=== PATIENT | male | born 1945 | race Caucasian/White ===

== ENCOUNTER → 2016-11-18 | Outpatient (CLI) | payer BC ==
[~2016-11-18] MED LIST: ALLO300T2 PO; APR50 PO; ASPI-232 PO; ATEN100T PO; DSY/50 PO; ERGO500037 PO; FINA5TAB4 PO; FLV1 PO; FURO40TA3 PO; INSU0.01 SQ; INSU1INJ17 SC; ISOS30TA3 PO; LSN20 PO; MCRK20 PO; METO100T14 PO; MIRA1TAB3 PO; NTRGSL/4 UT; PLV75 PO; PRAV20TA PO; TRIA0.1C20 TOP; TRMCR515 TOP
[2016-11-18 12:17] LABS: HEMATOCRIT 44.3 % (42-52); MEAN CELL VOLUME 87.7 fL (80-100); MEAN CORPUSCULAR HEMOGLOBIN 28.3 pg (25-34); MEAN CORPUSCULAR HGB CONC 32.3 g/dl (32-36); MEAN PLATELET VOLUME 10.3 fL (7.4-10.4); PLATELET COUNT 200 K/uL (130-400); RED BLOOD COUNT 5.05 M/uL (4.7-6.1); WHITE BLOOD COUNT 5.86 K/uL (4.8-10.8)
[2016-11-18 12:25] LABS: URINE APPEARANCE CLEAR (CLEAR); URINE BILIRUBIN NEG (NEG); URINE COLOR YELLOW; URINE EPITHELIAL CELL AUTO 0-5 /lpf (0-5); URINE NITRITE NEG (NEG); UROBILINOGEN NEG (NEG)
[2016-11-18 12:30] LABS: MANUAL MICROSCOPIC REQUIRED? NO; REVIEW REQ? NO
[2016-11-18 12:33] LABS: ESTIMATED AVERAGE GLUCOSE 177 mg/dl; HA1C FLAG Normal (Normal)
[2016-11-18 12:36] LABS: ALT/SGPT 16 U/L (12-78); BLOOD UREA NITROGEN 37 mg/dl (7-18); BUN/CREATININE RATIO 28.1 (10-20); CALCIUM 9.4 mg/dl (8.5-10.1); CARBON DIOXIDE 28 mmol/L (21-32); CHLORIDE 103 mmol/L (98-107); CHOLESTEROL 182 mg/dl (0-200); GLUCOSE 142 mg/dl (70-99); POTASSIUM 4.4 mmol/L (3.5-5.1); SODIUM 139 mmol/L (136-145); TRIGLYCERIDES 267 mg/dl (0-150); VERY LOW DENSITY LIPOPROT CALC 53 mg/dl
[2016-11-18 12:39] LABS: ALB/GLOB RATIO 0.9 (0.9-2); ALKALINE PHOSPHATASE 74 U/L (45-117); AST/SGOT 11 U/L (15-37); CHOLESTEROL/HDL RATIO 5.5; HDL CHOLESTEROL 33 mg/dl; LDL CHOLESTEROL CALCULATED 96 mg/dl
[2016-11-18 12:53] LABS: URINE PROTIEN/CREAT RATIO 0.2 (0-0.2)
--- NOTE | 2016-11-23 14:01 | CODING QUERY MEDICAL NECESSITY ---
SUPPORTING DIAGNOSIS NEEDED A supporting diagnosis is required for the test/procedure performed on this patient in order for us to be reimbursed by the patient's insurance. Please provide a supporting diagnosis for the following test/procedure listed below next to the test name along with your signature. *If there is no additional diagnosis for this patient that would support the following test/procedure please document that below next to the test/procedure. Test(s)/Procedure(s) that require a supporting diagnosis: * VITAMIN B-12 LEVEL DIAGNOSIS: * DOS: 11/18/16 Provider Signature: Date: Thank you Migdalia Mae Health Information Management Once completed, please kindly fax back to [phone] For questions please call [phone]
== END | disposition home or self-care (01) ==
LOC: C.LABBFT 09:24
PROVIDERS: ATTEND Internal Medicine
DX: R80.9 Proteinuria, unspecified (principal); N25.81 Secondary hyperparathyroidism of renal origin; D64.9 Anemia, unspecified; E55.9 Vitamin D deficiency, unspecified; N18.2 Chronic kidney disease, stage 2 (mild); I25.10 Atherosclerotic heart disease of native coronary artery without angina pectoris; M21.969 Unspecified acquired deformity of unspecified lower leg; M79.1 Myalgia; M54.9 Dorsalgia, unspecified; M19.90 Unspecified osteoarthritis, unspecified site; Q24.9 Congenital malformation of heart, unspecified; E11.49 Type 2 diabetes mellitus with other diabetic neurological complication; E11.65 Type 2 diabetes mellitus with hyperglycemia; E11.29 Type 2 diabetes mellitus with other diabetic kidney complication; I12.9 Hypertensive chronic kidney disease with stage 1 through stage 4 chronic kidney disease, or unspecified chronic kidney disease; E66.9 Obesity, unspecified; G47.9 Sleep disorder, unspecified

== ENCOUNTER → 2017-02-07 | Outpatient (CLI) | payer BC ==
--- NOTE | 2017-02-07 15:02 | DIAGNOSTIC IMAGING REPORT ---
RIGHT ANKLE 3 VIEWS CLINICAL HISTORY: Right ankle pain. FINDINGS: 3 views of the right ankle are obtained. No prior studies are available for comparison at the time of dictation. The skeletal structures are osteopenic. No fracture is seen. The ankle mortise is intact. There are large dorsal and plantar calcaneal enthesophytes. No joint effusion is identified. Soft tissue edema is present throughout the right calf. There is atherosclerotic calcification of the regional arteries. IMPRESSION: 1. Diffuse soft tissue edema with no acute bony abnormality identified. 2. Osteopenia and large heel spurs as above. Electronically signed by: Montez Carvalho M.D. 02/07/2017 3:01 PM Dictated Date/Time: 02/07/2017 3:00 PM
== END | disposition home or self-care (01) ==
LOC: C.RAD1850 14:36
PROVIDERS: ATTEND Internal Medicine
DX: M25.571 Pain in right ankle and joints of right foot (principal)

== ENCOUNTER → 2017-02-11 | Outpatient (CLI) | payer BC ==
--- NOTE | 2017-02-11 15:50 | DIAGNOSTIC IMAGING REPORT ---
MRI OF THE BRAIN WITHOUT IV CONTRAST CLINICAL HISTORY: Gated disturbance. Optic nerve asymmetry. Daily headaches. COMPARISON STUDY: No priors. TECHNIQUE: MRI of the brain was performed utilizing various T1 and T2-weighted sequences in the axial, sagittal, and coronal planes. IV contrast was not administered for this examination. FINDINGS: Brain parenchyma: There are age-related involutional changes noting moderate patchy subcortical and periventricular microangiopathic disease. There is no hemorrhage or mass effect. There are small chronic lacunar infarcts identified in the right cerebellar hemisphere, both thalami, the left caudate head, and the left basal ganglia. There is no restricted diffusion to suggest acute ischemia. Otoole-white matter differentiation is preserved. No extra-axial fluid collection is seen. The cerebellar tonsils are normal in configuration. Ventricles, sulci, and cisterns: Prominent secondary to involutional change. Pituitary and sella: Partially empty sella is incidentally noted. Intracranial vasculature: Normal flow voids are maintained at the skull base. Orbits: The bony orbits are grossly intact. Orbital contents are normal in appearance. The optic nerves are normal as visualized. Sinuses and mastoids: Clear. Calvarium: Unremarkable. Cervical cord: Partially visualized cervical spinal cord is normal in morphology and signal intensity. IMPRESSION: Age-related changes as above with no acute intracranial abnormality. Electronically signed by: Montez Carvalho M.D. 02/11/2017 3:49 PM Dictated Date/Time: 02/11/2017 3:45 PM
== END | disposition home or self-care (01) ==
LOC: C.MRI 15:06
PROVIDERS: ATTEND Internal Medicine
DX: H47.091 Other disorders of optic nerve, not elsewhere classified, right eye (principal); R26.9 Unspecified abnormalities of gait and mobility; R51 Headache

== ENCOUNTER → 2017-05-12 | Outpatient (CLI) | payer BC ==
--- NOTE | 2017-05-12 13:17 | DIAGNOSTIC IMAGING REPORT ---
CHEST 2 VIEWS ROUTINE CLINICAL HISTORY: I25.10 Arteriosclerotic coronary artery [id number] unstable angina COMPARISON STUDY: 02/03/2015 FINDINGS: The heart is mildly enlarged. There is no failure. There is no focal pulmonary consolidation. There are no pleural effusions. There is slight interstitial prominence, a finding similar to the prior study, and possibly secondary to the patient's body habitus.. There is an old left clavicular fracture.[ IMPRESSION: Mild chronic interstitial prominence. No acute findings. Electronically signed by: Yg Aragon M.D. 05/12/2017 1:15 PM Dictated Date/Time: 05/12/2017 1:15 PM
[2017-05-12 13:23] LABS: URINE APPEARANCE CLEAR (CLEAR); URINE BILIRUBIN NEG (NEG); URINE COLOR YELLOW; URINE EPITHELIAL CELL AUTO 0-5 /lpf (0-5); URINE NITRITE NEG (NEG); URINE PH 6.5 (4.5-7.5); URINE SPECIFIC GRAVITY 1.013 (1.000-1.030); UROBILINOGEN NEG (NEG)
[2017-05-12 13:24] LABS: HEMATOCRIT 44.4 % (42-52); MEAN CELL VOLUME 85.4 fL (80-100); MEAN CORPUSCULAR HEMOGLOBIN 28.3 pg (25-34); MEAN CORPUSCULAR HGB CONC 33.1 g/dl (32-36); MEAN PLATELET VOLUME 10.5 fL (7.4-10.4); PLATELET COUNT 215 K/uL (130-400); WHITE BLOOD COUNT 6.57 K/uL (4.8-10.8)
[2017-05-12 13:30] LABS: MANUAL MICROSCOPIC REQUIRED? NO; REVIEW REQ? NO
[2017-05-12 13:34] LABS: PARTIAL THROMBOPLASTIN RATIO 1.2; PROTHROMBIN TIME (PATIENT) 10.5 SECONDS (9.0-12.0)
[2017-05-12 13:36] LABS: ESTIMATED AVERAGE GLUCOSE 163 mg/dl; HA1C FLAG Normal (Normal)
[2017-05-12 13:42] LABS: URINE PROTIEN/CREAT RATIO 0.2 (0-0.2); URINE TOTAL PROTEIN 5.7 mg/dl (0-11.9)
[2017-05-12 13:50] LABS: ALT/SGPT 19 U/L (12-78); BLOOD UREA NITROGEN 19 mg/dl (7-18); CALCIUM 9.5 mg/dl (8.5-10.1); CARBON DIOXIDE 29 mmol/L (21-32); CHLORIDE 101 mmol/L (98-107); GLUCOSE 138 mg/dl (70-99); POTASSIUM 3.7 mmol/L (3.5-5.1); SODIUM 137 mmol/L (136-145)
[2017-05-12 13:53] LABS: ALB/GLOB RATIO 0.9 (0.9-2); ALKALINE PHOSPHATASE 88 U/L (45-117); AST/SGOT 23 U/L (15-37); PHOSPHORUS 2.6 mg/dl (2.5-4.9)
== END | disposition home or self-care (01) ==
LOC: C.RAD1850 12:11
PROVIDERS: ATTEND Internal Medicine Cardiovascular Disease
DX: I25.10 Atherosclerotic heart disease of native coronary artery without angina pectoris (principal); I20.0 Unstable angina; R80.9 Proteinuria, unspecified; N25.81 Secondary hyperparathyroidism of renal origin; D64.9 Anemia, unspecified; E55.9 Vitamin D deficiency, unspecified; I12.9 Hypertensive chronic kidney disease with stage 1 through stage 4 chronic kidney disease, or unspecified chronic kidney disease; E11.29 Type 2 diabetes mellitus with other diabetic kidney complication; N18.3 Chronic kidney disease, stage 3 (moderate)

== ENCOUNTER → 2017-05-13 | Day surgery (SDC) | payer BC ==
[~2017-05-13] VITALS: Ht 167.6 cm; Wt 110.0 kg
[~2017-05-13] MED LIST changes: +ACETAMINOPHEN 325 MG TAB PO PRN; +ATROPINE SULFATE 0.1 MG/ML 5ML SYR IV PRN; +FENTANYL CITRATE INJ 50 MCG/1 ML 2 ML VIAL ONE; +HEPARIN SOD (PORCINE) 1000 UNIT/ML 10 ML VIAL ONE; +MIDAZOLAM HCL 1 MG/ML 2ML VIAL ONE; +NITROGLYCERIN/D5W 100MCG/ML 20ML SYR ONE; +NiCARDipine HCL INJ 2.5 MG/ML 10 ML AMP ONE; +SODIUM CHLORIDE 0.9% 1000ML 1,000 ML IV SCH; +SODIUM CHLORIDE 0.9% 1000ML 250 ML IV PRN
[2017-05-13 07:09] VITALS: BP 148/67; PULSE 71; TEMP 36.6; O2SAT 97; Ht 167.6 cm; Wt 110.0 kg
--- NOTE | 2017-05-13 10:54 | History & Physical Bridge Note ---
H&P Re-Evaluation Bridge Note: I have examined the patient, reviewed the History & Physical and in the interval since the performance of the History & Physical I have noted the following changes of clinical significance: No changes noted
--- NOTE | 2017-05-13 10:55 | Procedure Note ---
Pre-Mod Sedation Assessment General Date of Moderate Sedation: May 13, 2017. Vital Signs: Vital Signs Past 12 Hours Date Time Temp Pulse Resp B/P (MAP) Pulse Ox O2 Delivery O2 Flow Rate FiO2 05/13/17 07:09 36.6 71 16 148/67 97 Room Air Review Cardiovascular: regular rate, rhythm, no gallop, no JVD, no murmur, normal peripheral pulses, + pertinent finding (Trace pretibial edema) Abdomen: normal bowel sounds, non tender, soft Lungs: lungs clear Pre-Sedation Airway Assessment Oral Cavity: Dentures Able to Visualize Vocal Cords: No Short Thick Neck: Yes Hx of Sleep Apnea: Yes Smoking Status: Former Smoker Mallampati Classification: Class III ASA Classification: Class III Procedure Planning Contraindications-for Mod Sed: None Yes Notes The planned sedation has been discussed with the patient and consent obtained. I have identified the patient, determined the appropriateness of sedation and have assessed the patient immediately prior to the procedure. All medicine(s) and interventions are by my order.
--- NOTE | 2017-05-13 13:06 | Procedure Note ---
Post-Mod Sedation Assessment General Date of Moderate Sedation May 13, 2017. Vital Signs: Vital Signs Past 12 Hours Date Time Temp Pulse Resp B/P (MAP) Pulse Ox O2 Delivery O2 Flow Rate FiO2 05/13/17 12:45 66 16 140/70 (93) 96 Room Air 05/13/17 12:30 70 16 138/66 (90) 97 Room Air 05/13/17 12:15 36.6 72 16 147/52 (83) 97 Room Air 05/13/17 07:09 36.6 71 16 148/67 97 Room Air Review - Discharge Criteria Vital Signs Stable: Yes Alert/Oriented/Conversant: Yes Returned to Baseline Mental St: Yes Nausea Absent/Minimal: Yes Pain/Discomfort/Absent/Minimal: Yes Normal/Baseline Respirations: Yes Active Bleeding?: No Pt Received D/C Instructions: Yes Prescriptions Given: Transmitted Specific Proced. D/C Criteria Distal Pulses Present (Cardiac: Yes Groin site assessed-Card Cath: N/A Voided Prior To Discharge: Yes Discharged Patients Adult Escort/Transportation: Yes
--- NOTE | 2017-05-13 13:11 | Cardiac Catheterization ---
Procedure Note Procedure Date May 13, 2017. Pre-Procedure Diagnosis Angina AUC Score 8 Post-Procedure Diagnosis Severe CAD, Normal Intracardiac Pressures Procedure(s) Performed Coronary Angiography, Left Heart Cath Cut Off Machine Operator Dr. To Test Man(s) EZRA [place] Estimated Blood Loss 25 ml Medication(s) Fentanyl, Heparin, Nicardipine, Versed, Lidocaine 1% Summary of Findings Clinical indications: History of total proximal LAD occlusion on cardiac catheterization 1996. Mild atherosclerotic disease in RCA and left circumflex coronary arteries at that time. History of diabetes mellitus, hypertension, and dyslipidemia. One month history of worsening anginal type symptoms. Class 3 anginal symptoms. Catheterization site: 6 Brazilian slender glide sheath right radial artery. Catheters: 5 Brazilian brachial 3.5, JL 4, ,TRAP 3.5,Olguin 4.0 diagnostic catheters. A 6 Brazilian JL 3.5 guide catheter was also used in attempts at cannulating the left coronary artery. Protocol: There was marked difficulty in advancing the brachial 3.5 diagnostic catheter through the ascending aorta. An Amplatz stiff J tipped exchange wire was needed to traverse the ascending aorta. There was marked difficulty in manipulating all diagnostic catheters. Multiple catheters were used in attempts at performing selective coronary angiography. Although limited angiograms were performed of the left coronary artery and right coronary artery it was felt that they were diagnostic. In attempts at limiting radiation and contrast dye load the procedure was terminated. Hemostasis: Terumo TR band. Complications: None. Findings: Fluoroscopy revealed extensive calcifications in both the right and left coronary arteries. The coronary circulation was right dominant. The left main coronary artery was a large caliber vessel without obstructive disease. It gave rise to medium caliber left anterior descending and left circumflex coronary arteries. The LAD was totally occluded in its proximal segment following the origin of a small caliber 1st diagonal artery. The diagonal had a 50% proximal stenosis. The left circumflex gave rise to 1 marginal branch. This is a medium caliber vessel. It was tortuous. It had diffuse atherosclerotic disease. 50-75% proximal stenosis, 90% mid stenosis, distal 50 % stenosis. The marginal was extensively calcified. [id number] collaterals were present from the I opt to use marginal 2 a diagonal branch which appeared to arise from the mid LAD. The right coronary artery was a medium caliber vessel giving rise to small caliber posterior descending and posterior lateral arteries. The mid RCA had an eccentric 50% stenosis. The proximal PDA had a 50 % stenosis. The remainder of the RCA had mild atherosclerotic disease with 10- 30% luminal diameter narrowing. Plan and recommendations: Intervention to the left circumflex marginal would be of increased difficulty because of the tortuosity of the vessel and extensive calcifications. This could impair delivery of a coronary stent to the desired locations. Additionally, there is diffuse atherosclerotic disease in the marginal. The patient's medical therapy for anginal control will be maximized. This will include isosorbide mononitrate. He will continue on beta- prosper therapy. If he continues to have anginal symptoms with maximally tolerated isosorbide could then a add ranolazine to his medical regimen. If he has anginal symptoms refractory to maximal medical therapy could consider intervention to the left circumflex marginal at that time. Would perform the procedure via a right femoral arterial access. The right radial access was complicated by difficulty in manipulating the catheters. An echocardiogram was performed following the catheterization procedure. It revealed an LV ejection fraction of 60-65%. Apical akinesis. Distal septal akinesis. Lateral wall hypokinesis. No significant valvular regurgitation. Left ventricular diastolic dysfunction. Hemodynamics Rest Ao: 127/72/96 mm Hg Final Ao: 129/62/90 mm Hg LV: 114/7 mm Hg Recommendations Medical therapy and/or Counseling Specimens None Radiation Exposure (mGy) 4283 Contrast (mls) 105 ml Visipaque Fluids (cc crystalloids) 130 Drains none Anesthesia IV Versed,fentanyl. Lidocaine 1 % local Procedural Complication(s) None Disposition Credit Card Interviewer Holding/Recovery ACC Data Cardiac Status Clinical evaluation leading to the procedure CAD Presntation: Unstable angina Anginal Classification: CCS III Heart Failure: No Cardiogenic Shock w/in 24Hrs: No Cardiac Arrest w/in 24Hrs: No Imaging studies past 6 months: No Stress studies past 6 months: No Standard Exercise Stress Test: No Stress Echocardiogram: No Stress Testing w/SPECT MPI: No Cardiac CTA: No Coronary Anatomy Dominant: Right Left Main (% Stenosis): Normal LAD (% Stenosis): Proximal (100) D1 (% Stenosis): Proximal (50) OM1 (% Stenosis): Proximal (50-75), Mid (90), Distal (50) RCA (% Stenosis): Mid (10-30,50), Distal (10-30) R PDA (% Stenosis): Proximal (50) Left Ventricular Angiography EF (%): NA Diagnostic Physician's Name: Abdifatah To M.D. Status: Elective Closure Device Percutaneous Entry Location: Radial Closure Device: Radial Band Recommendations: Medical therapy and/or Counseling
[2017-05-13 15:30] VITALS: BP 155/70; PULSE 68; O2SAT 96
--- NOTE | 2017-05-13 15:36 | ECHOCARDIOGRAM REPORT ---
*NOTICE TO RECEIVING LIBERTARIAN AGENCY This information is strictly Confidential and protected under [place] law. [place] law prohibits you from making any further disclosure of this information unless further disclosure is expressly permitted by the written consent of the person to whom it pertains or is authorized by law. A general authorization for the release of medical or other information is not sufficient for this purpose. Hospital accepts no responsibility if the information is made available to any other person, INCLUDING THE PATIENT. Interpretation Summary * Name: GASPER BLOOD Study Date: 05/13/2017 01:23 PM BP: 132/68 mmHg * Patient Location: C.CATH HR: 60 * : 1945 (M/d/yyyy) Gender: Male Height: 66 in * Age: 71 yrs Ethnicity: CA Weight: 242 lb * Ordering Physician: Abdifatah To * Referring Physician: Abdifatah To * Performed By: Cuca Darby RDCS * * Reason For Study: Chest pain * BSA: 2.2 m2 * Normal overall LV systolic function. * Distal septal and apical akinesis. * Mild left atrial dilatation. * Left ventricular diastolic dysfunction. * No significant valvular regurgitation. * -- Conclusions -- * Aortic valve sclerosis moderate, without significant aortic valvular stenosis. Procedure Details * A complete two-dimensional transthoracic echocardiogram was performed (2D, M-mode, Doppler and color flow Doppler). * A contrast injection of Definity was performed to improve assessment of LV function. * Contrast was injected into an intravenous site in the left arm. * One vial of Definity ultrasound contrast was diluted in normal saline to a total volume of 10 ml. A total of '3' ml of solution was administered during imaging. * Lot # [id number] of Definity utilized for procedure. * Expiration date JUN 08. * The attending nurse who injected the contrast agent was Rachel Mcgill RN. Left Ventricle * The left ventricle is normal in size. * Severe basal septal hypertrophy. * Ejection Fraction = 60-65%. * A full diastolic examination was done with clinical findings of Class I diastolic dysfunction. * There is apical akinesis. * There is mild lateral wall hypokinesis. * Distal septal akinesis. Right Ventricle * The right ventricle is normal in size and function. * The right ventricular systolic function is normal as assessed by tricuspid annular plane systolic excursion (TAPSE) (normal >1.5 cm). Atria * The left atrium is mildly dilated. * Right atrial size is normal. * No ASD detected; PFO is not assessed. Mitral Valve * The mitral valve is normal. * There is no mitral valve stenosis. * There is no mitral regurgitation noted. Tricuspid Valve * The tricuspid valve is normal. * There is no tricuspid stenosis. * There is trace tricuspid regurgitation. * Right ventricular systolic pressure is normal. Aortic Valve * The aortic valve is trileaflet. * Aortic valve sclerosis moderate, without significant aortic valvular stenosis. * No aortic regurgitation is present. Pulmonic Valve * The pulmonic valve is not well visualized. * The pulmonary valve is inadequately visualized, but the Doppler data is adequate for interpretation. * Pulmonic stenosis is absent. * Trace pulmonic valvular regurgitation. Great Vessels * The aortic root is normal size. Pericardium/Pleural * There is no pericardial effusion. Great Vessels * Normal inferior vena cava diameter and respiratory variation suggests normal central venous pressure. MMode 2D Measurements and Calculations IVSd 1.2 cm LVIDd 3.2 cm LVIDs 2.1 cm LVPWd 1.3 cm IVS/LVPW 0.95 FS 33.8 % EDV(Teich) 42.2 ml ESV(Teich) 15.2 ml EF(Teich) 64.0 % EDV(cubed) 34.0 ml ESV(cubed) 9.8 ml EF(cubed) 71.0 % LV mass(C)d 128.4 grams LV mass(C)dI 59.2 grams/m\S\2 SV(Teich) 27.0 ml SI(Teich) 12.4 ml/m\S\2 SV(cubed) 24.1 ml SI(cubed) 11.1 ml/m\S\2 Ao root diam 2.6 cm Ao root area 5.4 cm\S\2 ACS 1.9 cm LA dimension 4.6 cm asc Aorta Diam 3.2 cm LA/Ao 1.8 LVOT diam 2.0 cm LVOT area 3.2 cm\S\2 LVAd ap4 35.6 cm\S\2 LVLd ap4 8.7 cm EDV(MOD-sp4) 116.1 ml EDV(sp4-el) 123.3 ml LVAs ap4 20.3 cm\S\2 LVLs ap4 7.7 cm ESV(MOD-sp4) 42.7 ml ESV(sp4-el) 45.3 ml EF(MOD-sp4) 63.2 % EF(sp4-el) 63.2 % LVAd ap2 24.3 cm\S\2 LVLd ap2 6.8 cm EDV(MOD-sp2) 70.5 ml EDV(sp2-el) 73.6 ml LVAs ap2 14.0 cm\S\2 LVLs ap2 6.3 cm ESV(MOD-sp2) 26.5 ml ESV(sp2-el) 26.6 ml EF(MOD-sp2) 62.5 % EF(sp2-el) 63.9 % LVLd %diff -28.88 % EDV(MOD-bp) 103.1 ml LVLs %diff -23.33 % ESV(MOD-bp) 36.4 ml EF(MOD-bp) 64.7 % SV(MOD-sp4) 73.4 ml SI(MOD-sp4) 33.9 ml/m\S\2 SV(MOD-sp2) 44.1 ml SI(MOD-sp2) 20.3 ml/m\S\2 SV(MOD-bp) 66.8 ml SI(MOD-bp) 30.8 ml/m\S\2 SV(sp4-el) 77.9 ml SI(sp4-el) 35.9 ml/m\S\2 SV(sp2-el) 47.0 ml SI(sp2-el) 21.7 ml/m\S\2 Doppler Measurements and Calculations MV E max ayesha 67.9 cm/sec MV A max ayesha 91.7 cm/sec MV E/A 0.74 MV dec time 0.26 sec Ao V2 max 130.3 cm/sec Ao max PG 6.8 mmHg Ao max PG (full) 4.8 mmHg RUDY(V,A) 1.8 cm\S\2 RUDY(V,D) 1.8 cm\S\2 LV V1 max PG 2.0 mmHg LV V1 max 71.3 cm/sec PA V2 max 107.2 cm/sec PA max PG 4.6 mmHg PA acc slope 861.0 cm/sec\S\2 PA acc time 0.10 sec TR max ayesha 219.9 cm/sec PA pr(Accel) 34.6 mmHg
--- NOTE | 2017-05-13 16:03 | Discharge Instructions ---
Discharge Instructions Procedure Procedure Date: May 13, 2017. Reason for Visit: CAD. Discharge Discharge Date: May 13, 2017. Discharge Diagnosis: Coronary artery disease. Last Recorded Wt (Kilograms): 110 Anesthesia Post Anesthesia Instructions: If you have had General Anesthesia or IV Sedation: * Do not drive today. * Resume driving when surgeon permits. * Do not make important decisions or sign legal documents today. * Call surgeon for: 1. Temperature elevations greater than 101 degrees F. 2. Uncontrollable pain. 3. Excessive bleeding. 4. Persistent nausea and vomiting. 5. Medication intolerance (nausea, vomiting or rash). * For nausea and vomiting use only clear liquids such as: tea, soda, bouillon until nausea subsides, then gradually increase diet as tolerated. * If you have any concerns or questions, call your surgeon's office. If physician is unavailable and it is an emergency, call 911 or go to the nearest emergency room. Instructions Activity Recommendations: lifting limitation (No lifitng over 2 pounds for 48 hours), shower/bathe limit (You can shower tomorrow) Recommended Home Diet: low sodium, low cholesterol Allergies: Coded Allergies: Dobutamine (Verified Allergy, Unknown, HYPERTENSION, 08/30/16) Follow Up Additional Instructions: Call [phone] ( Dr. To's office ) for any problems or questions Follow-up with: Dr. To . Office will call for an appointment on Tuesday. Megan Lahaina Recommendations: Call your doctor if: * Temperature above 101 degrees * Pain not relieved by pain medicine ordered * There is increased drainage or redness from any incision * You have any unanswered questions or concerns. Your Doctors Instructions noted above were prepared by provider Abdifatah To. Patient Signature Section: Patient Instructions Signature Page Jose Andrews Patient (or Guardian) Signature/Date: I have read and understand the instructions given to me by my caregivers. Caregiver/RN/Doctor Signature/Date: The above-named patient and/or guardian has received patient instructions on this date. + Original Patient Signature Page (only) stays with chart. Please make copy for patient.
== END | disposition home or self-care (01) ==
LOC: C.CATH 06:49
PROVIDERS: ATTEND Internal Medicine Cardiovascular Disease
DX: I25.110 Atherosclerotic heart disease of native coronary artery with unstable angina pectoris (principal); M19.90 Unspecified osteoarthritis, unspecified site; N40.1 Benign prostatic hyperplasia with lower urinary tract symptoms; N13.8 Other obstructive and reflux uropathy; N18.3 Chronic kidney disease, stage 3 (moderate); E11.29 Type 2 diabetes mellitus with other diabetic kidney complication; E11.49 Type 2 diabetes mellitus with other diabetic neurological complication; I10 Essential (primary) hypertension; M10.9 Gout, unspecified; I12.9 Hypertensive chronic kidney disease with stage 1 through stage 4 chronic kidney disease, or unspecified chronic kidney disease; G62.9 Polyneuropathy, unspecified; E55.9 Vitamin D deficiency, unspecified; G47.30 Sleep apnea, unspecified; E66.01 Morbid (severe) obesity due to excess calories; Z79.82 Long term (current) use of aspirin; Z86.010 Personal history of colon polyps; Z90.49 Acquired absence of other specified parts of digestive tract; Z82.49 Family history of ischemic heart disease and other diseases of the circulatory system; Z83.3 Family history of diabetes mellitus